=== PATIENT | female | born 1970 | race Caucasian/White ===

== ENCOUNTER → 2019-03-03 11:13 | Outpatient (BNVA) | payer MEDICAID, SELFPAY | PROVIDERS: Family Provider Nurse Practitioner; PCP Nurse Practitioner; Visit Provider Specialist | DX: G40.909 Epilepsy, unspecified, not intractable, without status epilepticus (principal); G40.209 Localization-related (focal) (partial) symptomatic epilepsy and epileptic syndromes with complex partial seizures, not intractable, without status epilepticus; G43.019 Migraine without aura, intractable, without status migrainosus | CPT/HCPCS: 99213 ==

== ENCOUNTER → 2019-03-31 12:31 | Outpatient (BNVA) | payer MEDICAID, SELFPAY | PROVIDERS: Family Provider Nurse Practitioner; PCP Nurse Practitioner; Referring Provider Specialist; Visit Provider Specialist | DX: G40.009 Localization-related (focal) (partial) idiopathic epilepsy and epileptic syndromes with seizures of localized onset, not intractable, without status epilepticus (principal) | CPT/HCPCS: 95816 ==

== ENCOUNTER → 2019-09-02 14:47 | Outpatient (BNVA) | payer MEDICAID, SELFPAY | PROVIDERS: Family Provider Nurse Practitioner; PCP Nurse Practitioner; Visit Provider Specialist | DX: G40.219 Localization-related (focal) (partial) symptomatic epilepsy and epileptic syndromes with complex partial seizures, intractable, without status epilepticus (principal) | CPT/HCPCS: 99214 ==

== ENCOUNTER → 2020-07-28 09:57 | Outpatient (BNVA) | payer MEDICAID, SELFPAY | PROVIDERS: Family Provider Nurse Practitioner; PCP Nurse Practitioner; Visit Provider Specialist | DX: G40.219 Localization-related (focal) (partial) symptomatic epilepsy and epileptic syndromes with complex partial seizures, intractable, without status epilepticus (principal); F17.210 Nicotine dependence, cigarettes, uncomplicated | CPT/HCPCS: 99214 ==

== ENCOUNTER 2020-10-05 23:50 | Emergency (ER) | payer MEDICAID, SELFPAY ==
[2020-10-06] VITALS: BP 127/81; PULSE 81; RESP 20; TEMP 36.2; O2SAT 98; BMI 23.0
[2020-10-06 01:16] VITALS: PULSE 78
--- NOTE | 2020-10-06 01:55 | ED_ITS ---
HPI - Extremity Problem General: Chief complaint: Extremity Problem,Nontraumatic Stated complaint: Rt upper Thigh Bruise Time Seen by Provider: 10/06/20 01:18 History of Present Illness: HPI Narrative: Patient is a 50-year-old female comes to the ED with bruising on right upper thigh. Patient is unsure on how bruising occurred. She denies any pain in right leg. She says it was a little more swollen where the bruising was earlier today but is went down. She denies any chest pain, shortness of breath or hemoptysis. Denies any history of blood clots. Patient does have a history of varicose veins. Associated symptoms: Deny chest pain, fever(s) or rash Review of Systems Const: Denies: fever(s), chills or fatigue Eyes: Denies: change in vision or eye discomfort ENMT: Denies: throat pain, odynophagia, nasal discharge or nasal congestion Card: Denies: chest pain, palpitations, edema, swelling of feet/ankles, dyspnea on exertion or orthopnea Resp: Denies: dyspnea, productive cough or non-productive cough GI: Denies: abdominal pain, nausea, vomiting, diarrhea, constipation or hematochezia : Denies: flank pain, dysuria or hematuria Musc: Denies: neck pain, back pain or extremity swelling Skin/Breast: Reports: new lesions (Small bruising in right upper thigh); Denies: rash Neuro: Denies: headache(s), numbness in extremities or weakness in extremities PFSH ED PFSH: Medical History Chronic migraine Complex partial epilepsy with generalization Smoking addiction Family History Other Cancer Social History Smoking and tobacco status: current every day smoker cigarettes Packs smoked per day: 1.5 History of recent travel: No Physical Exam Const: COMMON NORMALS: no acute distress, patient oriented x3 and alert GENERAL APPEARANCE: cooperative and comfortable HENMT: COMMON NORMALS: normocephalic HEAD & SCALP: normocephalic MOUTH: Normal oral and palatal mucosa present THROAT: posterior oropharynx normal and uvula midline Neck/C-Spine: COMMON NORMALS: supple GENERAL: Yes normal visual inspection Resp: COMMON NORMALS: normal respiratory effort, No retractions, No use of accessory muscles and clear to auscultation bilaterally AUSCULTATION: clear to auscultation bilaterally Cardio: COMMON NORMALS: regular rate, regular rhythm, S1 normal heart sound present, S2 normal heart sound present, No gallops present (Cardio), No clicks present (Cardio), No murmurs present (Cardio) and Peripheral pulses 2+ throughout RATE: regular rate RHYTHM: regular rhythm HEART SOUNDS: S1 normal heart sound present and S2 normal heart sound present PERIPHERAL PULSES: Peripheral pulses 2+ throughout GI: COMMON NORMALS: Normal to inspection, nondistended, normoactive bowel sounds present, Soft to palpation, non-tender and no masses PALPATION: Yes Soft to palpation : COMMON NORMALS: Yes no CVA tenderness BLADDER/KIDNEY EXAM: Yes no CVA tenderness Back/Pelvis: COMMON NORMALS: no CVA tenderness Extremity: COMMON NORMALS: no calf tenderness and no pedal edema NARRATIVE EXTREMITY EXAM: Patient has some bilateral varicose veins visible. On patient's right upper thigh she has some varicose veins and then has a very small 1cm diameter superficial ecchymosis noted. No palpable nodule. findings suggestive of maybe a small rupture of her varicose vein. GENERAL: No calf tenderness Neuro: COMMON NORMALS: patient oriented x3 and moves all extremities SENSORIUM/ORIENTATION: Yes alert Skin: NARRATIVE SKIN EXAM: Patient has some bilateral varicose veins visible. On patient's right upper thigh she has some varicose veins and then has a very small 1cm diameter superficial ecchymosis noted. No palpable nodule. Findings suggestive of maybe a small rupture of her varicose vein GENERAL SKIN EXAM: dry skin Course Vital Signs: Vital signs: Vital Signs Temperature 97.1 F L 10/06/20 00:00 Pulse Rate 98 10/06/20 02:20 Respiratory Rate 20 H 10/06/20 02:20 Blood Pressure 108/59 10/06/20 02:20 Pulse Oximetry 98 10/06/20 02:20 MDM - Extremity (Nontraumatic) MDM Narrative: Medical decision making narrative: Patient is a 50-year-old female comes to the ED with small spot superficial ecchymosis of right thigh along with varicose veins. Patient denies any chest pain, shortness of breath, hemoptysis or history of blood clots. No tender nodule present. patient has no other symptoms and no pain or tenderness right leg. No calf tenderness and pedal pulse 2+. Exam findings likely of very limited and small varicose vein rupture. Patient's vitals are stable and she appears stable for discharge home. Told patient to put some pressure on that area and to ice and elevate right leg as well to help with symptoms. Take [id number] Tylenol and Motrin for pain. Follow-up with PCP in 7 days for reevaluation. Return to ED precautions given. Patient understood and agree with plan. Discharge Plan Discharge Patient Disposition: Home Clinical Impression: Asymptomatic ruptured varicose vein of left lower extremity Condition: Stable Prescriptions: No Action donepezil [Aricept] 10 mg tablet 10 mg PO DAILY RF: 0 clobazam [Onfi] 20 mg tablet 20 mg PO BID Qty: 60 RF: 5 cetirizine 10 mg capsule 10 mg PO DAILY RF: 0 paroxetine HCl [Paxil] 40 mg tablet 40 mg PO DAILY RF: 0 potassium gluconate 595 mg (99 mg) tablet 595 mg PO DAILY RF: 0 trazodone 150 mg tablet 150 mg PO .HS RF: 0 gabapentin 100 mg capsule 100 mg PO ONCE PRNRF: 0 albuterol sulfate 90 mcg/actuation HFA aerosol inhaler 1 inh INHALATION ONCE RF: 0 Discharge Orders: Discharge ED (Routine); Ordered 10/06/20 Ordered By: Ulisses Myers Referrals: Madina Petty FNP [Primary Care Provider] - Discharge Diet: Regular Discharge Activity: Increase activity as tolerated Patient Instructions: Varicose Veins (ED) Activity Restrictions/Additional Instructions: Follow-up with medical provider as directed in 5 to 7 days reevaluation. Apply cold pack on leg and elevate right leg as well to help with symptoms. Applying pressure on area as well can help with symptoms. Return to the ER or your medical provider if condition worsens. Please read and understand discharge instructions. Thank you for choosing [facility] for your healthcare needs today. Please realize this is an emergency room and that we are providing you with a medical screening exam and this may not be complete and all inclusive of all the testing and or work up that you may need to determine your ailment or severity of your illness. It is very important that you follow up as instructed or that you return to the Emergency Department should you have concerns or if your condition changes or worsens in any way. Coding Level of Care Code ED Marketing Intelligence Manager for Patricia Palomino Exam Comprehensive
[2020-10-06 02:20] VITALS: BP 108/59; PULSE 98; RESP 20; O2SAT 98
== END 2020-10-06 02:21 | disposition home or self-care (01) ==
PROVIDERS: Emergency Provider Physician Assistant; PCP Nurse Practitioner
DX: I83.92 Asymptomatic varicose veins of left lower extremity (principal); F17.210 Nicotine dependence, cigarettes, uncomplicated
CPT/HCPCS: 99282

== ENCOUNTER 2021-03-10 12:09 | Outpatient (CLI) | payer MEDICAID, SELFPAY ==
--- NOTE | 2021-03-10 12:17 | XR_ITS ---
WS: [id number] XR chest 2V* [id number] REASON FOR EXAM: CHRONIC COUGH FINDINGS: The heart and mediastinum are within normal limits. Calcified granulomatous disease is seen in both hemithoraces. No acute pulmonary parenchymal or pleural abnormality is noted. No significant abnormality bony thorax. The chest is essentially unchanged compared to 07/02/2015. XR/XR chest 2V* [id number] IMPRESSION: Stable chest with no acute abnormality.
--- NOTE | 2021-03-10 12:17 | XR_ITS ---
WS: [id number] XR lumbar spine 2-3V* [id number] REASON FOR EXAM: BACK PAIN AT L4-L5 FINDINGS: Mild rotatory scoliosis convex left. No significant vertebral body compression deformity or other focal vertebral body lesion. (There is p rotrusion of disc into the superior endplate of L2.) The intervertebral disc spaces are relatively well-preserved. No significant spondylolisthesis is seen. No spondylolysis identified. XR/XR lumbar spine 2-3V* [id number] IMPRESSION: No significant abnormality.
== END 2021-03-10 12:10 | disposition home or self-care (01) ==
LOC: RAD 12:12
PROVIDERS: PCP Nurse Practitioner; Visit Provider Nurse Practitioner
DX: M54.50 Low back pain, unspecified (principal); R05.3 Chronic cough
CPT/HCPCS: 71046; 72100

== ENCOUNTER → 2021-04-27 13:10 | Outpatient (BNVA) | payer MEDICAID, SELFPAY | PROVIDERS: PCP Nurse Practitioner; Visit Provider Specialist | DX: G40.219 Localization-related (focal) (partial) symptomatic epilepsy and epileptic syndromes with complex partial seizures, intractable, without status epilepticus (principal); M54.50 Low back pain, unspecified | CPT/HCPCS: 99213 ==

== ENCOUNTER 2021-04-27 14:45 | Emergency (ER) | payer MEDICAID, SELFPAY ==
[2021-04-27 15:29] VITALS: BP 125/82; PULSE 87; RESP 20; TEMP 36.8; O2SAT 93; BMI 20.9
[2021-04-27 15:51] VITALS: BP 125/82; PULSE 87; RESP 20; TEMP 36.8; O2SAT 93
--- NOTE | 2021-04-27 15:57 | XRR_ITS ---
PROCEDURE INFORMATION: Exam: XR Right Wrist Exam date and time: 04/27/2021 3:57 PM Age: 51 years old Clinical indication: Pain; Wrist; Right; Prior surgery TECHNIQUE: Imaging protocol: XR Right wrist. Views: 3 or more views. COMPARISON: No relevant prior studies available. FINDINGS: Bones/joints: Intact ORIF hardware noted in the distal radius at a healed fracture site. Well corticated ossification adjacent to the ulna styloid process measuring 3 mm, likely an old avulsed fragment. Osseous structures are intact, no acute fracture. Joint spaces are preserved. Soft tissues: Normal. XR/XR wrist RT min 3V* [id number] IMPRESSION: Intact ORIF hardware in the distal radius. No acute findings.
--- NOTE | 2021-04-27 15:58 | W.ED.BACK ---
HPI - Back Pain/Injury General: Chief Complaint: Back Pain/Injury Stated Complaint: Back pain Time Seen by Provider: 04/27/21 15:36 Source: patient Mode of arrival: ambulatory Limitations: no limitations History of Present Illness: Patient is a 51-year-old female who presents to the ED today with two separate complaints. First of all she complains of right wrist pain. Patient tells me she broke her wrist many years ago that required surgery. She states she is not sure if she re-injured it but states she has noticed increased pain over the past week or so. She has not noticed any swelling. She has a complaint of chronic mid right-sided back pain. Patient tells me she has had this pain for several months but states over the past month or so it seems to be worsening. She states pain does not radiate into her chest. She has no radicular pain into her arms or legs. She states she has been seeing her primary care provider for the pain. States at one point she was referred for back injections but states this appointment never was made. MD elicited complaint: back pain Pertinent past history: prior back pain Onset (ago): month(s) Timing: constant Severity: moderate Pain scale (0-10): 4 Similar Symptoms Previously: Yes Location: right upper back Radiation: none Associated symptoms: Reports no associated symptoms; Deny abdominal pain, chills, dysuria, fatigue, fever(s) or hematuria Work related injury: No Review of Systems Const: Denies: fever(s), chills, body aches, fatigue or malaise Card: Denies: chest pain Resp: Denies: dyspnea GI: Denies: abdominal pain : Denies: flank pain, dysuria or hematuria Musc: Reports: back pain and joint pain (R wrist); Denies: neck pain, extremity pain, extremity swelling, joint swelling or joint redness Skin/Breast: Denies: rash Neuro: Denies: headache(s), numbness in extremities, weakness in extremities or sensory changes PFS ED PFSH: Medical History Chronic migraine Complex partial epilepsy with generalization Smoking addiction Family History Other Cancer Social History Smoking and tobacco status: never smoked History of recent travel: No Physical Exam Const: COMMON NORMALS: no acute distress, patient oriented x3, no limitations and alert GENERAL APPEARANCE: cooperative HENMT: COMMON NORMALS: normocephalic and atraumatic HEAD & SCALP: normocephalic and atraumatic Neck/C-Spine: COMMON NORMALS: full ROM GENERAL: Yes normal visual inspection CERVICAL SPINE: Yes cervical ROM normal, No pain with cervical ROM, No Cervical spine tenderness, No step off deformity and No Paracervical muscle tenderness Chest: COMMONS NORMALS: normal inspection of the chest and normal palpation of entire chest wall Resp: COMMON NORMALS: normal respiratory effort and clear to auscultation bilaterally AUSCULTATION: clear to auscultation bilaterally Cardio: COMMON NORMALS: regular rate and regular rhythm RATE: regular rate RHYTHM: regular rhythm GI: COMMON NORMALS: Normal to inspection, nondistended, normoactive bowel sounds present, Soft to palpation, non-tender, No hepatosplenomegaly present and no masses INSPECTION: Yes normal to inspection PALPATION: Yes Soft to palpation and Yes No hepatosplenomegaly present : COMMON NORMALS: Yes no CVA tenderness BLADDER/KIDNEY EXAM: Yes no CVA tenderness Back/Pelvis: COMMON NORMALS: no CVA tenderness THORACIC SPINE/UPPER BACK: Yes normal to inspection, Yes thoracic ROM normal, Yes paraspinal muscle tenderness Thoracic paraspinal muscle tenderness: right and No paraspinal muscle spasm LUMBAR SPINE/LOWER BACK: Yes normal to inspection, Yes lumbar ROM normal, No lumbar spinal tenderness and No paraspinal muscle tenderness PELVIS: Yes buttocks normal SACROILIAC JOINTS: Yes SI joints normal Extremity: COMMON NORMALS: normal to inspection and full ROM GENERAL: Yes normal exam except as noted Neuro: COMMON NORMALS: patient oriented x3, moves all extremities, no focal motor deficits and no sensory deficits noted SENSORIUM/ORIENTATION: Yes alert MOTOR EXAM: 5/5 motor strength present throughout Skin: COMMON NORMALS: no rashes or lesions noted GENERAL SKIN EXAM: no rashes or lesions noted Course Vital Signs: Vital signs: Vital Signs Temperature 98.2 F 04/27/21 15:51 Pulse Rate 87 04/27/21 15:51 Respiratory Rate 20 H 04/27/21 15:51 Blood Pressure 125/82 04/27/21 15:51 Pulse Oximetry 93 04/27/21 15:51 MDM - Back Pain/Injury Medical Decision Making Patient here with complaints of acute on chronic right mid back pain as well as some pain to her right wrist. XR of her right wrist showing no acute findings. Her hardware appears intact. Think she might be on a some medications at home for her back pain but cannot remember the names of them. Patient was given IM Toradol and Norflex here. Recommend she follow-up with primary care provider for any addition or changes to her medication for her back pain. I told her I don't want to prescribe her anything if I don't know what she is already taking-patient verbalized understanding. Labs Radiology Impressions Wrist X-Ray 04/27/21 15:57 IMPRESSION: Intact ORIF hardware in the distal radius. No acute findings. Discharge Plan Discharge Patient Disposition: Home Clinical Impression: Chronic mid back pain, Pain in right wrist Condition: Stable Prescriptions: No Action donepezil [Aricept] 10 mg tablet 10 mg PO DAILY 0RF clobazam [Onfi] 20 mg tablet 20 mg PO BID Qty: 60 5RF cetirizine 10 mg capsule 10 mg PO DAILY 0RF paroxetine HCl [Paxil] 40 mg tablet 40 mg PO DAILY 0RF potassium gluconate 595 mg (99 mg) tablet 595 mg PO DAILY 0RF trazodone 150 mg tablet 150 mg PO .HS 0RF gabapentin 100 mg capsule 100 mg PO ONCE PRN0RF albuterol sulfate 90 mcg/actuation HFA aerosol inhaler 1 inh INHALATION ONCE 0RF Discharge Orders: Discharge ED (Routine); Ordered 04/27/21 Ordered By: Michelle Herman Referrals: Madina Petty FNP [Primary Care Provider] - Activity Restrictions/Additional Instructions: As we discussed please follow-up with your primary care provider in regards to your chronic back discomfort. They may make any changes to your medications as they feel indicated. Coding Level of Care Code ED Apprentice Painter Neckties for Patricia Fwlamont Exam Comprehensive
[2021-04-27] MEDS: ketorolac 60 mg/2 mL INJ IM (16:46)
[2021-04-27] MEDS: orphenadrine 30 mg/mL Inj 2 mL 60 MG IM (16:47)
[2021-04-27 17:17] VITALS: BP 125/82; PULSE 87; RESP 20; TEMP 36.8; O2SAT 93
== END 2021-04-27 16:58 | disposition home or self-care (01) ==
PROVIDERS: Emergency Provider Physician Assistant; PCP Nurse Practitioner
DX: G89.29 Other chronic pain (principal); M25.531 Pain in right wrist; M54.6 Pain in thoracic spine
CPT/HCPCS: 73110; 96372; 99283; J1885; J2360

== ENCOUNTER 2021-12-09 18:21 | Emergency (ER) | payer MEDICAID, SELFPAY ==
[2021-12-09 18:36] VITALS: BMI 22.8
--- NOTE | 2021-12-09 19:56 | ED_ITS ---
HPI - General Adult General: Chief complaint: General Medical Stated complaint: med refill Time Seen by Provider: 12/09/21 19:02 Source: patient Mode of arrival: ambulatory Limitations: no limitations History of Present Illness: 51-year-old female who states she had ran out of her clonazepam has been without it for 3 days she states that she has been on it for quite some time and is concerned as she is not in to get it in the mail until next week. She denies any headaches denies any vomiting denies any diarrhea. Associated symptoms: Deny chest pain, dyspnea, headache(s), nausea, rash or vomiting Review of Systems Const: Denies: fever(s), chills, body aches or change in appetite Eyes: Denies: blurry vision or eye discomfort ENMT: Denies: throat pain or dental pain Card: Denies: chest pain Resp: Denies: dyspnea GI: Denies: abdominal pain, nausea, vomiting or diarrhea : Denies: dysuria Musc: Denies: neck pain or back pain Skin/Breast: Denies: rash Neuro: Denies: headache(s) Psych: Denies: depression Pietro/Lymph: Denies: easy bruising All/Imm: Denies: urticaria PFSH ED PFSH: Medical History Chronic migraine Complex partial epilepsy with generalization Smoking addiction Family History Other Cancer Social History Smoking and tobacco status: never smoked History of recent travel: No Physical Exam Const: COMMON NORMALS: no acute distress, patient oriented x3 and healthy appearing HENMT: COMMON NORMALS: normocephalic and atraumatic HEAD & SCALP: normocephalic and atraumatic Eye: COMMON NORMALS: conjunctivae normal CONJUNCTIVA: Yes conjunctivae normal Neck/C-Spine: COMMON NORMALS: full ROM and supple Chest: COMMONS NORMALS: normal inspection of the chest Resp: COMMON NORMALS: normal respiratory effort Cardio: COMMON NORMALS: regular rate, regular rhythm and No murmurs present (Cardio) RATE: regular rate RHYTHM: regular rhythm GI: INSPECTION: Yes normal to inspection Extremity: COMMON NORMALS: normal to inspection and full ROM Neuro: COMMON NORMALS: patient oriented x3, moves all extremities and no focal motor deficits Psych: COMMON NORMALS: mental status grossly normal, Normal thought process present and cooperative THOUGHT PROCESS: Normal thought process present Skin: COMMON NORMALS: no rashes or lesions noted and no wounds GENERAL SKIN EXAM: no rashes or lesions noted MDM - General Adult Medical Decision Making Patient presents here for medication refill we will give her 1 weeks worth of her clobazam she is to follow-up with her neurologist return if worsening. Discharge Plan Discharge Patient Disposition: Home Clinical Impression: Medication refill Condition: Stable Prescriptions: Continued cetirizine 10 mg capsule 10 mg PO DAILY Qty: 60 0RF Onfi 20 mg tablet 20 mg PO BID Qty: 7 1RF No Action donepezil [Aricept] 10 mg tablet 10 mg PO DAILY paroxetine HCl [Paxil] 40 mg tablet 40 mg PO DAILY potassium gluconate 595 mg (99 mg) tablet 595 mg PO DAILY trazodone 150 mg tablet 150 mg PO .HS gabapentin 100 mg capsule 100 mg PO ONCE PRN albuterol sulfate 90 mcg/actuation HFA aerosol inhaler 1 inh INHALATION ONCE Discharge Orders: Discharge ED (Routine); Ordered 12/09/21 Ordered By: Jeramy Pappas Referrals: Madina Petty FNP [Primary Care Provider] - 1-3 days Discharge Diet: Advance as tolerated Discharge Activity: Resume usual activity Patient Instructions: Medicine Refill (ED) Coding Level of Care Code ED Carpentry Instructor for Patricia Fwlamont Exam Comprehensive
== END 2021-12-09 20:16 | disposition home or self-care (01) ==
PROVIDERS: Emergency Provider Emergency Medicine; PCP Nurse Practitioner
DX: Z76.0 Encounter for issue of repeat prescription (principal)
CPT/HCPCS: 99283

== ENCOUNTER → 2022-03-07 15:22 | Outpatient (BNVA) | payer MEDICAID, SELFPAY | PROVIDERS: PCP Family Medicine; Visit Provider Specialist | DX: G40.219 Localization-related (focal) (partial) symptomatic epilepsy and epileptic syndromes with complex partial seizures, intractable, without status epilepticus (principal) | CPT/HCPCS: 99213 ==

== ENCOUNTER 2022-04-10 16:21 | Emergency (ER) | payer MEDICAID, SELFPAY ==
[2022-04-10 16:28] VITALS: BP 105/71; PULSE 96; RESP 16; TEMP 36.8; O2SAT 95
--- NOTE | 2022-04-10 17:08 | XRR_ITS ---
PROCEDURE INFORMATION: Exam: XR Right Ribs with PA Chest Exam date and time: 04/10/2022 5:51 PM Age: 52 years old Clinical indication: Injury or trauma; Rib area; Blunt trauma (contusions or hematomas); Injury date: 04/09/2022; Injury details: Pain upon breathing after fall. ; Additional info: Fall injury TECHNIQUE: Imaging protocol: Radiologic exam of the Right ribs with PA chest. Views: 3 views COMPARISON: CR XR chest 2V* [id number] 03/10/2021 1:08 PM FINDINGS: Lungs: Unremarkable. No consolidation. Pleural spaces: Unremarkable. No pleural effusion. No pneumothorax. Heart/Mediastinum: Unremarkable. No cardiomegaly. Bones/joints: No evidence of rib fracture. Visualized osseous structures are intact. XR/XR ribs RT mn 3V w CXR1V [id number] IMPRESSION: No acute findings.
--- NOTE | 2022-04-10 17:08 | W.ED.FALL ---
HPI - Fall General: Chief Complaint: Fall Stated Complaint: fall, rib pain Time Seen by Provider: 04/10/22 17:06 History of Present Illness: 52-year-old female comes in today for complaints of pain to the right anterior ribs. Patient reports falling yesterday onto her right side and since then has had increasing pain and discomfort in the right anterior ribs, and increased pain with inspiration. Patient appears in mild to moderate pain. Patient appears nontoxic. Associated symptoms-after fall: Denies chest pain or headache(s) Review of Systems Const: Denies: fever(s) Card: Denies: chest pain Resp: Denies: dyspnea GI: Denies: nausea or vomiting Musc: Reports: other (Right rib pain) Neuro: Denies: headache(s) PFSH ED PFSH: Medical History Chronic migraine Complex partial epilepsy with generalization Smoking addiction Family History Other Cancer Social History Smoking and tobacco status: never smoked History of recent travel: No Physical Exam Const: COMMON NORMALS: alert HENMT: COMMON NORMALS: normocephalic and Normal external nose present HEAD & SCALP: normocephalic NOSE: Normal external nose present MOUTH: Normal oral and palatal mucosa present Neck/C-Spine: COMMON NORMALS: full ROM Chest: CHEST: Yes tenderness (Right lower anterior rib) Resp: COMMON NORMALS: normal respiratory effort and clear to auscultation bilaterally AUSCULTATION: clear to auscultation bilaterally Cardio: COMMON NORMALS: regular rate and regular rhythm RATE: regular rate RHYTHM: regular rhythm Extremity: COMMON NORMALS: normal to inspection Neuro: SENSORIUM/ORIENTATION: Yes alert Skin: COMMON NORMALS: no rashes or lesions noted GENERAL SKIN EXAM: no rashes or lesions noted Course Vital Signs: Vital signs: Vital Signs Temperature 98.2 F 04/10/22 16:28 Pulse Rate 96 04/10/22 16:28 Respiratory Rate 16 04/10/22 16:28 Blood Pressure 105/71 04/10/22 16:28 Pulse Oximetry 95 04/10/22 16:28 MDM - Fall Medical Decision Making 52-year-old female comes in today for complaints of injury to the right ribs. On exam no crepitus or subcu emphysema is noted. Patient does have tenderness in the right lower anterior ribs. Respirations are even lungs are clear to auscultation. Vital signs are normal. Differential diagnosis includes rib contusion, rib fracture, pneumothorax. X-ray of the chest and ribs noted no pneumothorax or fractures. Reviewed exam with patient with recommendations for treatment and follow-up. Patient reported understanding agreed to plan. Lab Data Radiology Impressions Ribs X-Ray 04/10/22 17:08 IMPRESSION: No acute findings. Discharge Plan Discharge Patient Disposition: Home Clinical Impression: Contusion of rib on right side Qualifiers: Encounter type: initial encounter Qualified Code(s): S20.211A - Contusion of right front wall of thorax, initial encounter Condition: Stable Prescriptions: New hydrocodone-acetaminophen 5-325 mg tablet 1 tab PO Q8H PRN (Reason: pain (scale score 7-10)) Qty: 10 0RF No Action donepezil [Aricept] 10 mg tablet 10 mg PO DAILY paroxetine HCl [Paxil] 40 mg tablet 40 mg PO DAILY potassium gluconate 595 mg (99 mg) tablet 595 mg PO DAILY trazodone 150 mg tablet 150 mg PO .HS gabapentin 100 mg capsule 100 mg PO ONCE PRN albuterol sulfate 90 mcg/actuation HFA aerosol inhaler 1 inh INHALATION ONCE Onfi 20 mg tablet 20 mg PO BID Qty: 180 1RF cetirizine 10 mg capsule 10 mg PO DAILY Qty: 60 0RF Discharge Orders: Discharge ED (Routine); Ordered 04/10/22 Ordered By: Ramakrishna Salgado Referrals: Simone Alvarado MD [Primary Care Provider] - Discharge Diet: Usual diet Discharge Activity: Increase activity as tolerated Patient Instructions: Rib Contusion (ED) Activity Restrictions/Additional Instructions: Activity as tolerated. Use ice or heat to the area for further comfort. Splint ribs when coughing or taking a deep breath. Drink plenty of water with medication. Use acetaminophen and ibuprofen for control of pain. Use hydrocodone for severe pain. Follow-up with primary care for further instruction. Stand Alone Forms: Work/School Release Coding Level of Care Code ED Fish Skinning Machine Feeder for Patricia Palomino
[2022-04-10] MEDS: HYDROcodone-acetaminophen 5-325 mg Tablet 1 TAB PO (17:29)
[2022-04-10 19:05] VITALS: BP 131/80; PULSE 74; RESP 15; TEMP 36.7; O2SAT 96
== END 2022-04-10 19:02 | disposition home or self-care (01) ==
PROVIDERS: Emergency Provider Nurse Practitioner Family; PCP Family Medicine
DX: S20.211A Contusion of right front wall of thorax, initial encounter (principal); W19.XXXA Unspecified fall, initial encounter
CPT/HCPCS: 71101; 99283

== ENCOUNTER 2022-06-14 14:55 | Outpatient (CLI) | payer MEDICAID, SELFPAY ==
--- NOTE | 2022-06-14 15:09 | MM_ITS ---
WS: [id number] BILATERAL 3D TOMOSYNTHESIS DIGITAL SCREENING MAMMOGRAPHY WITH CAD CLINICAL INFORMATION: SCREEN HISTORY: Screening mammogram. No current complaints. COMPARISON: 2018 TECHNIQUE: Bilateral CC and MLO views. FINDINGS: The breasts are composed of heterogeneous fibroglandular density tissue, which can limit the detectio n of small underlying mass lesions. No suspicious mass, asymmetry, calcifications, or architectural d istortion. No evidence of malignancy. Punctate and lucent centered calcifications. Eggshell calcifica tion RIGHT breast. MM/[place] [id number] IMPRESSION: BI-RADS: 2-Benign FOLLOW UP: 1 Year Follow-up Recommend return to annual screening mammography.
== END 2022-06-14 14:56 | disposition home or self-care (01) ==
LOC: RAD 14:57
PROVIDERS: PCP Family Medicine; Visit Provider Family Medicine
DX: Z12.31 Encounter for screening mammogram for malignant neoplasm of breast (principal)
CPT/HCPCS: 77063; 77067

== ENCOUNTER → 2023-03-06 12:28 | Outpatient (BNVA) | payer MEDICAID, SELFPAY | PROVIDERS: PCP Family Medicine; Visit Provider Specialist | DX: G40.219 Localization-related (focal) (partial) symptomatic epilepsy and epileptic syndromes with complex partial seizures, intractable, without status epilepticus (principal) | CPT/HCPCS: 99213 ==

== ENCOUNTER → 2024-03-27 13:58 | Outpatient (BNVA) | payer MEDICAID, SELFPAY | PROVIDERS: PCP Family Medicine; Visit Provider Specialist | DX: G40.219 Localization-related (focal) (partial) symptomatic epilepsy and epileptic syndromes with complex partial seizures, intractable, without status epilepticus (principal) | CPT/HCPCS: 99214 ==